=== PATIENT | female | born 1995 | race Caucasian/White ===

== ENCOUNTER → 2025-01-23 10:15 | Outpatient (CLI) | payer OTHER, SELFPAY ==
--- NOTE | 2025-01-23 10:21 | DI.CT.S_ITS ---
PROCEDURE: CT KIDNEY URETER BLADDER (KUB) INDICATIONS: nausea,chronic abd pain,micro hematuria TECHNIQUE: Axial sections were acquired from the lung bases to the pubic symphysis. Coronal and sagittal reformats were performed. For radiation dose reduction, the following was used: automated exposure control, adjustment of mA and/or kV according to patient size. COMPARISON: None. FINDINGS: Image quality: Diagnostic. Lower Chest: No significant findings. URINARY: Right Kidney: No stones or hydronephrosis. Right Ureter: No hydroureter. Left Kidney: No stones or hydronephrosis. Left Ureter: No hydroureter. Bladder: Normal wall thickness. No stones. ABDOMEN: Liver: No contour-deforming solid mass. Gallbladder: No radiopaque gallstones or wall thickening. Biliary ducts: No biliary dilation. Pancreas: No ductal dilation. Spleen: Size is within normal limits. Adrenal Glands: No adrenal nodules. Stomach and Bowel: Normal colonic caliber, without significant wall thickening. Peritoneum: No abnormal intraperitoneal fluid. No free air. Ventral Wall: No hernia. Abdominal Nodes: No enlarged retroperitoneal or mesenteric lymph nodes. Vessels: Aorta and inferior vena cava are normal in size. PELVIS: Pelvic Organs: Unremarkable except for what appears to be a 2.7 cm right adnexal cyst. Pelvic Nodes: Unremarkable. Miscellaneous: No inguinal hernias are seen. Bones: Unremarkable. IMPRESSION: No obstructing stones or hydronephrosis. Source of hematuria is not seen. Apparent 2.7 cm right adnexal cyst. Dictated by: Narendra Alvarez M.D. on 01/23/2025 at 12:33 Approved by: Narendra Alvarez M.D. on 01/23/2025 at 12:36
== END ==
PROVIDERS: Referring Provider Physician Assistant; Visit Provider Physician Assistant
DX: R31.29 Other microscopic hematuria (principal); R11.2 Nausea with vomiting, unspecified; R10.9 Unspecified abdominal pain
CPT/HCPCS: 74176